=== PATIENT | male | born 1965 | race American Indian/Alaskan Native ===

== ENCOUNTER 2017-03-03 12:23 | Observation (INO) | payer OTHER ==
[2017-03-03 12:28] VITALS: RESP 18; O2SAT 100
--- NOTE | 2017-03-03 13:19 | C.PDOC ---
History Of Present Illness 51-YEAR-OLD MALE, PRESENTS TO THE EMERGENCY DEPARTMENT WITH COMPLAINTS OF INTERMITTENT DIZZY X 3 DAYS. WORSE W POSITION CHANGE. PS INITIAL ONSET WHILE WEIGHT LIFTING "FELT I WAS GOING TO PASS OUT". DENIES HOLDING BREATH DURING EXERCISE. NO ASSOC CP, PALPITATIONS, FOCAL WEAK. PS HAS BEEN W BAD ALLERGIES FOR SEV WEEKS, ON BACTRIM, BAILEE. PENDING CT BY PMD EXAM MILD DIST NONTOXIC HEENT NO NYSTAGMUS; NO RHINORRHEA NEURO N FOCAL DEF; +INDUCIBLE VERTIGO W POSITION CHANGE REMAINDER NEG Time Seen by Provider: 03/03/17 12:41 Chief Complaint (Nursing): Dizziness/Lightheaded History Per: Patient History/Exam Limitations: no limitations Onset/Duration Of Symptoms: Days Current Symptoms Are (Timing): Still Present Past Medical History Reviewed: Historical Data, Nursing Documentation, Vital Signs Vital Signs: Last Vital Signs Temp 97.5 F L 03/03/17 12:26 Pulse 85 03/03/17 12:26 Resp 18 03/03/17 12:26 BP 136/86 03/03/17 12:26 Pulse Ox 100 03/03/17 15:11 - Medical History PMH: HIV - [facility] Procedures APPLICATION OF SPLINT (12/22/12) Family History: States: No Known Family Hx - Social History Hx Alcohol Use: Yes Hx Substance Use: No Review Of Systems Except As Marked, All Systems Reviewed And Found Negative. Constitutional: Negative for: Fever Cardiovascular: Negative for: Chest Pain Respiratory: Negative for: Shortness of Breath Gastrointestinal: Negative for: Nausea, Vomiting Neurological: Positive for: Dizziness Physical Exam - Physical Exam Appears: Non-toxic, No Acute Distress (mild) Skin: Warm, Dry, No Rash Head: Atraumatic, Normacephalic Eye(s): bilateral: Normal Inspection, PERRL, EOMI, Other (NO NYSTAGMUS) Nose: No Discharge, Other (no rhinorrhea) Neck: Normal ROM Cardiovascular: Rhythm Regular, No Murmur Respiratory: Normal Breath Sounds, No Accessory Muscle Use Extremity: Normal ROM Neurological/Psych: Oriented x3, Normal Speech, Other (No FOCAL DEF; +INDUCIBLE VERTIGO W POSITION CHANGE) ED Course And Treatment - Laboratory Results Result Diagrams: 03/03/17 13:50 03/03/17 13:50 ECG: Interpreted By Me ECG Rhythm: Sinus Rhythm ECG Interpretation: Normal Rate From EC O2 Sat by Pulse Oximetry: 100 Pulse Ox Interpretation: Normal - Radiology CXR: Interpreted by Me CXR Interpretation: Yes: No Acute Disease ED OBSERVATION Discharge: Yes Date of observation admission: 03/03/17 Time of observation admission: 13:00 - Observation admission statement Patient is being placed in observation because:: DIZZY - Goals of Observation Goals of observation are:: RO ACS, CVA; SX IMPROVE - Progress Note Progress Note: 03/03/17 15:11 AMBUL WO DIFF FEELS BETTER. STEADY GAIT NEURO INTACT Disposition Counseled Patient/Family Regarding: Studies Performed, Diagnosis, Need For Followup, Rx Given - Disposition Disposition: HOME/ ROUTINE Disposition Time: 15:11 Condition: IMPROVED - Clinical Impression Clinical Impression: Vertigo as late effect of stroke, Vertigo - Scribe Statement The provider has reviewed the documentation as recorded by the Scribe (Urszula Rodriguez) All medical record entries made by the Scribe were at my direction and personally dictated by me. I have reviewed the chart and agree that the record accurately reflects my personal performance of the history, physical exam, medical decision making, and the department course for this patient. I have also personally directed, reviewed, and agree with the discharge instructions and disposition.
[2017-03-03 14:00] LABS: BASO % 0.8 % (0.0-2.0); EOS # 0.2 K/uL (0.0-0.7); EOS % 6.3 % (0.0-4.0); HEMATOCRIT 43.1 % (35.0-51.0); LYMPH # 1.8 K/uL (1.0-4.3); LYMPH % 49.5 % (20.0-40.0); MEAN CELL VOLUME 90.4 fL (80.0-94.0); MEAN CORPUSCULAR HEMOGLOBIN 30.5 pg (27.0-31.0); MEAN CORPUSCULAR HGB CONC 33.7 g/dL (33.0-37.0); MEAN PLATELET VOLUME 10.5 fL (7.2-11.7); MONO # 0.5 K/uL (0.0-0.8); MONO % 12.7 % (0.0-10.0); NRBC % 0.1 % (0.0-2.0); RED CELL DISTRIBUTION WIDTH 14.2 % (11.5-14.5); WHITE BLOOD COUNT 3.6 K/uL (4.8-10.8)
[2017-03-03 14:10] LABS: BLOOD UREA NITROGEN 16 mg/dL (9-20); CALCIUM 9.6 mg/dl (8.6-10.4); CARBON DIOXIDE 23 mmol/L (22-30); CHLORIDE 103 mmol/L (98-107); GFR AFRICAN-AMERICAN > 60; GLUCOSE,RANDOM 84 mg/dL (75-110); POTASSIUM 4.4 mmol/L (3.6-5.2); SODIUM 140 mmol/L (132-148)
--- NOTE | 2017-03-03 14:27 | CT ---
PROCEDURE: CT HEAD WITHOUT CONTRAST. HISTORY: DIZZY HO SINUSITIS COMPARISON: None available. TECHNIQUE: Axial computed tomography images were obtained through the head/brain without intravenous contrast. Radiation dose: Total exam DLP = 896 mGy-cm. This CT exam was performed using one or more of the following dose reduction techniques: Automated exposure control, adjustment of the mA and/or kV according to patient size, and/or use of iterative reconstruction technique. FINDINGS: HEMORRHAGE: No intracranial hemorrhage. BRAIN: The density of the shay and white matter structures above the band below the tentorium appears within normal limits including throughout the brainstem. There is no mass effect or suspicious extra-axial fluid collection identified. Midline brain and appears diffusely unremarkable. VENTRICLES: Unremarkable. No hydrocephalus. CALVARIUM: Unremarkable. PARANASAL SINUSES: Unremarkable as visualized. No significant inflammatory changes. MASTOID AIR CELLS: Unremarkable as visualized. No inflammatory changes. OTHER FINDINGS: None. IMPRESSION: Normal CT of the Head. CT or MRI are available follow-up if clinically warranted.
[2017-03-03 15:25] VITALS: BP 130/78; PULSE 66; TEMP 98
--- NOTE | 2017-03-03 17:04 | RAD ---
HISTORY: DIZZY COMPARISON: No prior. TECHNIQUE: Chest PA and lateral FINDINGS: LUNGS: No active pulmonary disease. PLEURA: No significant pleural effusion identified. No pneumothorax apparent. CARDIOVASCULAR: Normal. OSSEOUS STRUCTURES: No significant abnormalities. VISUALIZED UPPER ABDOMEN: Normal. OTHER FINDINGS: None. IMPRESSION: No acute cardiopulmonary is appreciated.
--- NOTE | 2017-03-07 18:34 | CARD ---
APPROVED REPORT EKG Measurement Heart [id number] OK [id number] <Conclusion> Normal sinus rhythm Normal ECG
== END 2017-03-03 15:11 | disposition home or self-care (01) ==
LOC: C.ER 12:23 → C.9OBSV 13:00
PROVIDERS: ADMIT Emergency Medicine; ATTEND Emergency Medicine
DX: I69.398 Other sequelae of cerebral infarction (principal); R42 Dizziness and giddiness; B20 Human immunodeficiency virus [HIV] disease
CPT/HCPCS: 36415; 70450; 71020; 80048; 84484; 85025; 99285; G0378

== ENCOUNTER 2017-10-12 09:49 | Emergency (ER) | payer OTHER ==
[2017-10-12] MEDS ORDERED: Sodium Chloride 0.9% 1,000 ML IV STA ×2 (10:18→12:02)
[2017-10-12] MEDS ORDERED: Sodium Chloride 0.9% 1,000 ML ONE ×2 (10:30→12:07)
[2017-10-12 10:50] LABS: BASO % 0.4 % (0.0-2.0); EOS # 0.1 K/uL (0.0-0.7); EOS % 3.4 % (0.0-4.0); HEMOGLOBIN 14.8 g/dL (12.0-18.0); LYMPH # 1.5 K/uL (1.0-4.3); LYMPH % 36.1 % (20.0-40.0); MEAN CELL VOLUME 90.4 fL (80.0-94.0); MEAN CORPUSCULAR HEMOGLOBIN 30.9 pg (27.0-31.0); MEAN CORPUSCULAR HGB CONC 34.2 g/dL (33.0-37.0); MEAN PLATELET VOLUME 9.6 fL (7.2-11.7); MONO # 0.7 K/uL (0.0-0.8); NEUT # 1.8 K/uL (1.8-7.0); NEUT % 43.1 % (50.0-75.0); NRBC % 0.1 % (0.0-2.0); RBC 4.78 Mil/uL (4.40-5.90); RED CELL DISTRIBUTION WIDTH 13.5 % (11.5-14.5); WHITE BLOOD COUNT 4.2 K/uL (4.8-10.8)
--- NOTE | 2017-10-12 11:03 | C.PDOC ---
History Of Present Illness 52-year-old male, presents to the emergency department with complaints of four- day duration of generalized abdominal pain that is associated with nausea and episodes of non-bloody/non-bilious vomiting which has now resolved. Patient also notes associated diarrhea, last episode last night. Denies fevers or chills. Patient attributes his symptoms to something he may have eaten. Chief Complaint (Nursing): Abdominal Pain History Per: Patient History/Exam Limitations: no limitations Past Medical History Reviewed: Historical Data, Nursing Documentation, Vital Signs Vital Signs: Last Vital Signs Temp 98 F 10/12/17 12:50 Pulse 62 10/12/17 12:50 Resp 16 10/12/17 12:50 BP 108/68 10/12/17 12:50 Pulse Ox 100 10/12/17 13:02 - Medical History PMH: HIV (from previous triage) - [facility] Procedures APPLICATION OF SPLINT (12/22/12) Family History: States: No Known Family Hx - Social History Hx Alcohol Use: Yes Hx Substance Use: No - Immunization History Hx Tetanus Toxoid Vaccination: No Hx Influenza Vaccination: Yes Hx Pneumococcal Vaccination: No Review Of Systems Constitutional: Negative for: Fever, Chills Cardiovascular: Negative for: Chest Pain Respiratory: Negative for: Shortness of Breath Gastrointestinal: Positive for: Nausea, Vomiting, Abdominal Pain, Diarrhea Genitourinary: Negative for: Dysuria, Hematuria Skin: Negative for: Rash Neurological: Negative for: Weakness, Numbness, Headache, Dizziness Physical Exam - Physical Exam Appears: Non-toxic, No Acute Distress Skin: Warm, Dry, No Rash Head: Normacephalic Eye(s): bilateral: PERRL Nose: Normal Oral Mucosa: Moist Lips: Normal Appearing Neck: Normal ROM Cardiovascular: Rhythm Regular, No Murmur Respiratory: Normal Breath Sounds, No Accessory Muscle Use Gastrointestinal/Abdominal: Soft, No Tenderness, No Guarding, No Rebound Extremity: Normal ROM, No Deformity, No Swelling Neurological/Psych: Oriented x3, Normal Speech ED Course And Treatment - Laboratory Results Result Diagrams: 10/12/17 10:41 10/12/17 10:41 O2 Sat by Pulse Oximetry: 100 (RA) Pulse Ox Interpretation: Normal Progress Note: Patient was traeted with IVF, Protonix IV and Zofran IV with improvement. On re-evaluation patient feels better, tolerates po fluid, denies any abdominal pain. Patient was informaed that his creatinin was elevated and he was instructed to follow up with PMD and repeat BNP in 1 week. Copy of lab results were given to the patient. Disposition - Disposition Disposition: HOME/ ROUTINE Disposition Time: 13:00 Condition: STABLE Additional Instructions: Follow up with your PMD within 2-3 days. Return to ED if feel worse. please ask your PMD to check you kidney function test in 1 week. Instructions: Viral Gastroenteritis Forms: [employer] ([place]) - Clinical Impression Clinical Impression: Gastroenteritis - Scribe Statement The provider has reviewed the documentation as recorded by the Scribe (Urszula Rodriguez) All medical record entries made by the Scribe were at my direction and personally dictated by me. I have reviewed the chart and agree that the record accurately reflects my personal performance of the history, physical exam, medical decision making, and the department course for this patient. I have also personally directed, reviewed, and agree with the discharge instructions and disposition.
[2017-10-12 11:05] LABS: ALB/GLOB RATIO 1.2 (1.0-2.1); ALBUMIN 4.1 g/dL (3.5-5.0); CALCIUM 9.3 mg/dl (8.6-10.4)
[2017-10-12 12:08] LABS: SQUAMOUS EPITHIAL < 1 /hpf (0-5); URINE BILIRUBIN NEGATIVE (NEGATIVE); URINE BLOOD NEGATIVE (NEGATIVE); URINE CLARITY Clear (Clear); URINE COLOR Yellow (YELLOW); URINE GLUCOSE (UA) NORMAL (Normal); URINE LEUKOCYTE ESTERASE NEG Leu/uL (Negative); URINE PROTEIN NEGATIVE (NEGATIVE); URINE UROBILINOGEN NORMAL mg/dL (0.2-1.0)
[2017-10-12 12:51] VITALS: BP 108/68; PULSE 62; RESP 16; TEMP 98
[2017-10-12 13:02] VITALS: O2SAT 100
== END 2017-10-12 13:17 | disposition home or self-care (01) ==
LOC: C.ER 09:49
DX: K52.9 Noninfective gastroenteritis and colitis, unspecified (principal)
CPT/HCPCS: 80053; 81001; 83690; 85025; 96361; 96374; 96375; 99285; C9113; J2405; J7040

== ENCOUNTER 2018-07-08 21:42 | Emergency (ER) | payer OTHER ==
[2018-07-08 22:03] VITALS: TEMP 98.3
--- NOTE | 2018-07-08 22:05 | C.PDOC ---
History Of Present Illness 52 year old male presents to the ED c/o chest tightness and pressure since yesterday. Patient reports he has been going to the gym and taking protein and other supplements for his workout. Patient rates the pain at 4/10. Patient stat es he has been taking Lamisil but did not take it yesterday because it was related to his symptoms. Patient denies fever, chills, SOB, injury, fall, trauma, weakness, numbness. Time Seen by Provider: 07/08/18 22:05 Chief Complaint (Nursing): Chest Pain History Per: Patient History/Exam Limitations: no limitations Onset/Duration Of Symptoms: Days (1) Current Symptoms Are (Timing): Still Present Pain Scale Rating Of: 4 Quality: "Pain" Recent travel outside of the [place]: No Additional History Per: Patient Past Medical History Reviewed: Historical Data, Nursing Documentation, Vital Signs Vital Signs: Last Vital Signs Temp 98.3 F 07/08/18 22:02 Pulse 91 H 07/08/18 21:55 Resp 14 07/08/18 21:55 BP 132/85 07/08/18 21:55 Pulse Ox 97 07/08/18 21:55 - Medical History PMH: HIV (from previous triage) Surgical History: No Surg Hx - [facility] Procedures APPLICATION OF SPLINT (12/22/12) Family History: States: Unknown Family Hx - Social History Hx Alcohol Use: Yes Hx Substance Use: No - Immunization History Hx Tetanus Toxoid Vaccination: No Hx Influenza Vaccination: Yes Hx Pneumococcal Vaccination: No Review Of Systems Constitutional: Negative for: Fever, Chills Cardiovascular: Positive for: Chest Pain. Negative for: Palpitations Respiratory: Negative for: Shortness of Breath Gastrointestinal: Negative for: Nausea, Vomiting, Abdominal Pain Skin: Negative for: Rash Neurological: Negative for: Weakness, Numbness, Headache, Dizziness Physical Exam - Physical Exam Appears: Non-toxic, No Acute Distress Skin: Warm, Dry Head: Normacephalic Eye(s): bilateral: Normal Inspection Neck: Supple Chest: Symmetrical Cardiovascular: Rhythm Regular Respiratory: No Rales, No Rhonchi, No Wheezing Gastrointestinal/Abdominal: Soft, No Tenderness, No Guarding, No Rebound Extremity: Bilateral: Atraumatic, Normal Color And Temperature, Normal ROM Neurological/Psych: Oriented x3, Normal Speech, Normal Cognition Gait: Steady ED Course And Treatment - Laboratory Results Result Diagrams: 07/08/18 22:21 07/08/18 22:21 ECG: Interpreted By Me, Viewed By Me ECG Rhythm: Sinus Rhythm (92), Nonspecific Changes O2 Sat by Pulse Oximetry: 97 (ON RA) Pulse Ox Interpretation: Normal - Radiology CXR: Interpreted by Me, Viewed By Me CXR Interpretation: No: Infiltrates, Fracture, Pnemothorax Progress Note: Plan: - EKG. - Labs. - CXR. - Aspirin 325 mg PO. - UA. pt states he feels better and wants to go home. Understands the risks, including , but he still signed ama paper. States he will return if symptoms recur Against Medical Advice - AMA Patient Left Against Medical Advice: The patient declines admission to the hospital and wishes to leave the Emergency Department. This action is against my medical advice. This decision was made with informed refusal. The patient was told that admission to the hospital is necessary. Explanation of the reasons why were discussed. The risks of leaving were explained to the patient and include, but are not limited to, worsening of known or currently unknown conditions, permanent disability and from undiagnosed or untreated conditions. The patient has the capacity to make this informed decision and understands my explanation of the current medical problem and risks of leaving. The patient voluntarily accepts these risks and signed an AMA form documenting our conversation. The patient was given the opportunity to ask questions and reconsider. The patient was encouraged to return to the Emergency Department at any time for further care. Disposition Counseled Patient/Family Regarding: Studies Performed, Diagnosis, Need For Followup - Disposition Referrals: [facility] [Outside] [facility] [Outside] Disposition: HOME/ ROUTINE Disposition Time: 22:05 Condition: FAIR Additional Instructions: Please return if symptoms recur Instructions: Chest Pain (DC) Forms: [email or web address] ([place]ym[place]) - Clinical Impression Clinical Impression: Chest pain - Scribe Statement The provider has reviewed the documentation as recorded by the Scribe Reji Knapp All medical record entries made by the Scribe were at my direction and personally dictated by me. I have reviewed the chart and agree that the record accurately reflects my personal performance of the history, physical exam, medical decision making, and the department course for this patient. I have also personally directed, reviewed, and agree with the discharge instructions and disposition.
[2018-07-08 22:26] LABS: BASO % 0.4 % (0.0-2.0); EOS # 0.1 K/uL (0.0-0.7); EOS % 2.2 % (0.0-4.0); HEMOGLOBIN 14.8 g/dL (12.0-18.0); LYMPH # 2.1 K/uL (1.0-4.3); LYMPH % 35.5 % (20.0-40.0); MEAN CORPUSCULAR HEMOGLOBIN 31.3 pg (27.0-31.0); MEAN CORPUSCULAR HGB CONC 33.2 g/dL (33.0-37.0); MEAN PLATELET VOLUME 10.6 fL (7.2-11.7); MONO # 0.7 K/uL (0.0-0.8); MONO % 11.2 % (0.0-10.0); NEUT # 3.1 K/uL (1.8-7.0); NEUT % 50.7 % (50.0-75.0); RBC 4.72 Mil/uL (4.40-5.90); RED CELL DISTRIBUTION WIDTH 13.1 % (11.5-14.5)
[2018-07-08 22:27] LABS: MEAN CELL VOLUME 94.3 fL (80.0-94.0)
[2018-07-08 22:33] LABS: INR 1.2
[2018-07-08 22:37] LABS: ALB/GLOB RATIO 1.6 (1.0-2.1); ALBUMIN 4.9 g/dL (3.5-5.0); BLOOD UREA NITROGEN 18 mg/dL (9-20); CALCIUM 8.9 mg/dl (8.6-10.4); GFR NON-AFRICAN AMERICAN 58
[2018-07-08 22:53] LABS: ALT/SGPT 23 U/L (21-72); AST/SGOT 31 U/L (17-59)
[2018-07-08 22:58] LABS: URINE BILIRUBIN NEGATIVE (NEGATIVE); URINE BLOOD NEGATIVE (NEGATIVE); URINE CLARITY Clear (Clear); URINE COLOR Yellow (YELLOW); URINE GLUCOSE (UA) NORMAL (Normal); URINE LEUKOCYTE ESTERASE NEG Leu/uL (Negative); URINE PROTEIN NEGATIVE (NEGATIVE); URINE UROBILINOGEN NORMAL mg/dL (0.2-1.0)
[2018-07-08 23:09] LABS: BARBITURATES, UR NEGATIVE (NEGATIVE); BENZODIAZEPINES, UR NEGATIVE (NEGATIVE); OPIATES, UR NEGATIVE (NEGATIVE); PHENCYCLIDINE, UR NEGATIVE (NEGATIVE)
[2018-07-08 23:53] VITALS: BP 119/76; PULSE 76; RESP 18; O2SAT 99
--- NOTE | 2018-07-09 11:04 | RAD ---
HISTORY: chest pain COMPARISON: Chest x-ray performed 03/03/17 TECHNIQUE: Chest, one view. FINDINGS: LUNGS: No focal consolidation. Please note that chest x-ray has limited sensitivity for the detection of pulmonary masses. PLEURA: No significant pleural effusion identified. No definite pneumothorax . CARDIOVASCULAR: Heart size appears within normal limits. No significant atherosclerotic calcification present. OSSEOUS STRUCTURES: No acute osseous abnormality identified. VISUALIZED UPPER ABDOMEN: Mild elevation right hemidiaphragm. OTHER FINDINGS: None. IMPRESSION: No focal consolidation.
== END 2018-07-09 00:09 | disposition left against medical advice (07) ==
LOC: C.ER 21:42
DX: R07.89 Other chest pain (principal)
CPT/HCPCS: 71045; 80053; 81001; 82948; 84484; 85025; 85610; 85730; 93005; 99285; G0480